=== PATIENT | female | born 1945 | race Caucasian/White ===

== ENCOUNTER → 2016-04-28 | Outpatient (CLI) | payer BC ==
[~2016-04-28] MED LIST: ATOR-14 PO; ATOR10TA88 PO; CALCTAB7 PO; COEN100C15 PO; OMEG10007 PO; OPTIRAY 320 IV PRN; OXYC-57 PO; PREMARIN; RIZA10TA18 PO; VTMD400 PO
--- NOTE | 2016-04-28 11:42 | DIAGNOSTIC IMAGING REPORT ---
CT SCAN OF THE ABDOMEN AND PELVIS WITH IV CONTRAST CLINICAL HISTORY: Followup pancreatic lesion/cyst. COMPARISON STUDY: Abdominal CT dated 09/22/2015. TECHNIQUE: Following the IV administration of 92 cc of Optiray 320, CT scan of the abdomen and pelvis is performed from the lung bases to the proximal femora. Images are reviewed in the axial, sagittal, and coronal planes. IV contrast was administered without complication. Automated dose control exposure was utilized. CT DOSE: 315.91 mGycm FINDINGS: Lung bases: The heart is normal in size and without pericardial effusion. A 3 mm left lower lobe pulmonary nodule is seen on image #16. A 2 mm nodule the right lung base as seen on image #26. These are unchanged from previous. No new pulmonary nodule is suspected. The lung bases are otherwise clear noting dependent atelectasis. Liver: The contrast-enhanced liver is normal in size, contour, and attenuation. There is no intrahepatic biliary ductal dilatation. The hepatic veins and portal veins are patent. An 8 mm indeterminate hypodensity in the right lobe on image #87 is unchanged from 09/22/2015. This may present a cyst but is too small for definitive characterization. Gallbladder: Unremarkable. Spleen: Normal in size and attenuation. Pancreas: There is mild glandular atrophy. The pancreatic duct is normal in caliber. No pancreatic lesion is seen. The questioned tiny IPMN suggested on 09/22/2015 is not well visualized. Adrenal glands: Unremarkable. Kidneys: The contrast enhanced kidneys are normal in size and without hydronephrosis. The kidneys enhance symmetrically. A subcentimeter cortical hypodensity upper pole of left kidney may represent a tiny cyst but is too small for definitive characterization. Abdominal vasculature: The abdominal aorta is normal in course and caliber noting mild atherosclerotic calcification. Bowel: The small bowel and colon are normal in course and caliber. There is moderate colonic fecal retention. The appendix is not visualized. Peritoneum: There is no intraperitoneal free air or abdominal ascites. Lymphadenopathy: None. Pelvic viscera: The bladder, uterus, and adnexa are normal as visualized. Calcified phleboliths are seen in the pelvis. Skeletal structures: The skeletal structures are osteopenic. There is moderate lumbosacral spondylosis. Bilateral pars defects are seen at L5 with minimal anterolisthesis at L5-S1. No lytic or blastic lesions are seen. A hemangioma is noted in the body of L1. IMPRESSION: 1. No pancreatic lesion is identified on today's examination. The 3 mm suspected IPMN suggested on 09/22/2015 is no longer discretely visualized and may have represented fat. No lesion is identified typical in appearance for pancreatic adenocarcinoma. 2. An 8 mm subcentimeter hypodensity in the right lobe of liver is unchanged. This may represent a cyst but is too small for definitive characterization. 3. No acute infectious or inflammatory findings are identified. 4. Moderate colonic fecal retention. Electronically signed by: Juan R Ford M.D. 04/28/2016 11:40 AM Dictated Date/Time: 04/28/2016 11:27 AM
== END | disposition home or self-care (01) ==
LOC: C.CTS 10:31
PROVIDERS: ATTEND Internal Medicine Hematology & Oncology
DX: K86.2 Cyst of pancreas (principal); R93.2 Abnormal findings on diagnostic imaging of liver and biliary tract; K59.00 Constipation, unspecified

== ENCOUNTER → 2016-07-21 | Outpatient (CLI) | payer BC ==
[~2016-07-21] MED LIST changes: +ATOR10TA82 PO; -ATOR10TA88 PO; -OPTIRAY 320 IV PRN
== END | disposition home or self-care (01) ==
LOC: C.MAMM 07:48
PROVIDERS: ATTEND Family Medicine
DX: M85.851 Other specified disorders of bone density and structure, right thigh (principal); M85.852 Other specified disorders of bone density and structure, left thigh

== ENCOUNTER → 2016-08-10 | Outpatient (CLI) | payer BC ==
--- NOTE | 2016-08-10 13:17 | MAMMOGRAPHY REPORT ---
BILATERAL DIGITAL SCREENING MAMMOGRAM WITH CAD: 08/10/2016 CLINICAL HISTORY: Routine screening. Patient has no complaints. TECHNIQUE: Current study was also evaluated with a Computer Aided Detection (CAD) system. Bilatera l CC and MLO views were obtained. COMPARISON: Comparison is made to exams dated: 08/10/2015 mammogram, 08/06/2014 mammogram, 08/05/2013 joceline mogram, 08/02/2012 mammogram, 08/01/2011 mammogram, and 07/28/2010 mammogram - [facility]. BREAST COMPOSITION: The tissue of both breasts is extremely dense, which lowers the sensitivity of mammography. FINDINGS: No suspicious masses, calcifications, or areas of architectural distortion are noted in e ither breast. There has been no significant interval change compared to prior exams. IMPRESSION: ACR BI-RADS CATEGORY 1: NEGATIVE There is no mammographic evidence of malignancy. A 1 year screening mammogram is recommended. The p atient will receive written notification of the results. Approximately 10% of breast cancers are not detected with mammography. A negative mammographic repor t should not delay biopsy if a clinically suggestive mass is present. Chyna Vázquez M.D. /:08/10/2016 11:48:23 Base Brander: Yolie DOYLE(R)(M), [facility] letter sent: Normal 1/2 BI-RADS Code: ACR BI-RADS Category 1: Negative
== END | disposition home or self-care (01) ==
LOC: C.MAMM 09:53
PROVIDERS: ATTEND Obstetrics & Gynecology
DX: Z12.31 Encounter for screening mammogram for malignant neoplasm of breast (principal)

== ENCOUNTER 2016-10-11 18:51 | Emergency (ER) | payer BC ==
[~2016-10-11] VITALS: Ht 162.6 cm; Wt 50.2 kg
[~2016-10-11 18:51] MED LIST changes: -ATOR10TA82 PO; -OXYC-57 PO; -PREMARIN; -RIZA10TA18 PO; -VTMD400 PO
[2016-10-11 18:56] VITALS: Ht 162.6 cm; Wt 50.2 kg
[2016-10-11] MEDS ORDERED: ATOR10TA88 PO (19:43)
[2016-10-11] MEDS ORDERED: VTMD400 PO (19:43)
--- NOTE | 2016-10-11 20:25 | DIAGNOSTIC IMAGING REPORT ---
CHEST ONE VIEW PORTABLE CLINICAL HISTORY: Chest and upper back pain. COMPARISON STUDY: Chest radiograph October 07, 2015. FINDINGS: Lung volumes are normal. There is no pneumothorax or pleural effusion. Cardiac size is normal. Mediastinal contours are unremarkable. There is no evidence of pulmonary edema. No consolidation is identified. Slight asymmetric hazy right lung opacity is likely artifactual. IMPRESSION: No acute cardiopulmonary findings. Electronically signed by: Mikhail Perkins M.D. 10/11/2016 8:23 PM Dictated Date/Time: 10/11/2016 8:17 PM
[2016-10-11 20:47] LABS: BASO % 0.2 %; BASO ABS # 0.02 K/uL (0-0.2); COMPLETE YES; EOS % 0.2 %; HEMATOCRIT 42.4 % (37-47); IG% 0.2 %; LYMPH % 10.9 %; LYMPH ABS # 0.98 K/uL (1.2-3.4); MEAN CELL VOLUME 89.5 fL (80-100); MEAN CORPUSCULAR HEMOGLOBIN 30.6 pg (25-34); MEAN CORPUSCULAR HGB CONC 34.2 g/dl (32-36); MEAN PLATELET VOLUME 9.6 fL (7.4-10.4); MONO % 8.1 %; NEUT % 80.4 %; PLATELET COUNT 219 K/uL (130-400); RED BLOOD COUNT 4.74 M/uL (4.2-5.4); WHITE BLOOD COUNT 9.02 K/uL (4.8-10.8)
[2016-10-11 20:51] VITALS: O2SAT 97
[2016-10-11 20:57] LABS: POINT OF CARE TROPONIN I < 0.030 ng/ml (0-0.045)
[2016-10-11 21:10] LABS: BUN/CREATININE RATIO 13.8 (10-20); CALCIUM 10.4 mg/dl (8.5-10.1)
[2016-10-11 21:15] LABS: CKMB/CK RATIO 0.6 (0-3.0)
[2016-10-11 21:47] LABS: URINE APPEARANCE CLEAR (CLEAR); URINE BILIRUBIN NEG (NEG); URINE COLOR YELLOW; URINE EPITHELIAL CELL AUTO >30 /lpf (0-5); URINE NITRITE NEG (NEG); UROBILINOGEN NEG (NEG); ZZUR CULT IF INDIC CLEAN CATCH YES
[2016-10-11 21:50] LABS: MANUAL MICROSCOPIC REQUIRED? NO; REVIEW REQ? YES
[2016-10-11 22:06] LABS: URINE MUCUS PRESENT (NONE PRSENT)
--- NOTE | 2016-10-11 23:37 | EMERGENCY ROOM VISIT NOTE ---
History Report prepared by Anny: Brittaney Esqueda Under the Supervision of: Dr. Vincent Mckenna M.D. First contact with patient: 19:50 Chief Complaint: BACK PAIN Stated Complaint: PAINS IN UPPER BACK AND R SIDE OF CHEST History of Present Illness The patient is a 71 year old female who presents to the Emergency Room with complaints of persistent right sided back pain that began late this morning. She currently rates her discomfort as a 7/10 in severity. The patient states that she additionally notices pain in the right side of her chest. She states that she notices increased, sharp pains with a deep breath occasionally. The patient denies ever having pain like this in the past. She denies the pain worsening with exertion and right arm movements. The patient denies any recent fall or trauma. She reports abdominal tenderness last evening, but denies having the pain now. Pt denies LOC, headache, fevers, chills, diaphoresis, visual changes, neck pain, breathing difficulties, nausea, vomiting, melena, hematochezia, urinary symptoms, numbness, weakness, lymphadenopathy, rash, or other complaints. Source of History: patient Onset: late this morning Position: back (right sided) Symptom Intensity: 7/10 Quality: sharp Timing: other (persistent) Modifying Factors (Worsening): breathing (deep) Associated Symptoms: + chest pain (right sided), + abdominal pain Review of Systems See HPI for pertinent positives and negatives. A total of ten systems were reviewed and were otherwise negative. Past Medical & Surgical Medical Problems: (1) Epigastric pain (2) Pancreatitis (3) Tendonitis Surgical Problems: (1) H/O dilation and curettage Family History FH: HTN (hypertension) FH: cancer FH: diabetes mellitus FH: gallbladder disease FH: heart disease FH: kidney disease Social History Smoking Status: Never Smoker Marital Status: Housing Status: lives with significant other Occupation Status: employed Current/Historical Medications Scheduled Atorvastatin (Lipitor), 10 MG PO DAILY Calcium Carbonate-Vitamin D W/ (Caltrate 600 Plus), 1 TAB PO BID Cholecalciferol (Vitamin D3), 400 UNITS PO BID Coenzyme Q10 (Ubidecarenone) (Co Q10), 1 CAP PO DAILY Fish Oil ([place]-3), 1 CAP PO BIDM Allergies Coded Allergies: Nitrofurantoin (Verified Allergy, Mild, hives, 10/11/16) Propoxyphene (Verified Allergy, Mild, hives, 10/11/16) Physical Exam Vital Signs Date Time Temp Pulse Resp B/P (MAP) Pulse Ox O2 Delivery O2 Flow Rate FiO2 10/12/16 00:04 36.8 71 18 119/71 98 10/11/16 23:55 71 18 119/71 98 Room Air 10/11/16 21:01 73 18 124/63 97 Room Air 10/11/16 20:51 97 Room Air 10/11/16 20:27 74 10/11/16 18:56 36.8 95 18 141/78 98 Room Air Physical Exam GENERAL: Awake, alert, well-appearing, in no distress HENT: Normocephalic, atraumatic. Oropharynx unremarkable. EYES: Normal conjunctiva. Sclera non-icteric. NECK: Supple. No nuchal rigidity. FROM. No JVD. RESPIRATORY: Clear to auscultation. CARDIAC: Regular rate, normal rhythm. Extremities warm and well perfused. Pulses equal. ABDOMEN: Soft, non-distended. No tenderness to palpation. No rebound or guarding. No masses. RECTAL: Deferred. MUSCULOSKELETAL: Chest examination reveals no tenderness. The back is symmetrical on inspection without obvious abnormality. There is no CVA tenderness to palpation. No joint edema. LOWER EXTREMITIES: Calves are equal size bilaterally and non-tender. No edema. No discoloration. NEURO: Normal sensorium. No sensory or motor deficits noted. SKIN: No rash or jaundice noted. Medical Decision & Procedures ER Provider Diagnostic Interpretation: Radiology results as stated below per my review and radiologist interpretation: CHEST ONE VIEW PORTABLE CLINICAL HISTORY: Chest and upper back pain. COMPARISON STUDY: Chest radiograph October 07, 2015. FINDINGS: Lung volumes are normal. There is no pneumothorax or pleural effusion. Cardiac size is normal. Mediastinal contours are unremarkable. There is no evidence of pulmonary edema. No consolidation is identified. Slight asymmetric hazy right lung opacity is likely artifactual. IMPRESSION: No acute cardiopulmonary findings. Electronically signed by: Mikhail Perkins M.D. 10/11/2016 8:23 PM Dictated Date/Time: 10/11/2016 8:17 PM Gallbladder: Cholelithiasis without inflammatory or obstructive changes. Radiologist: Rachana Verdin MD Study ready at [id number] and initial results transmitted at 2322 Laboratory Results 10/11/16 20:25 Red Blood Count 4.74, Mean Corpuscular Volume 89.5, Mean Corpuscular Hemoglobin 30.6, Mean Corpuscular Hemoglobin Concent 34.2, Mean Platelet Volume 9.6, Neutrophils (%) (Auto) 80.4, Lymphocytes (%) (Auto) 10.9, Monocytes (%) (Auto) 8.1, Eosinophils (%) (Auto) 0.2, Basophils (%) (Auto) 0.2, Neutrophils # (Auto) 7.25, Lymphocytes # (Auto) 0.98, Monocytes # (Auto) 0.73, Eosinophils # (Auto) 0.02, Basophils # (Auto) 0.02 10/11/16 20:25 Test 10/11/16 20:25 10/11/16 20:37 10/11/16 22:36 White Blood Count 9.02 K/uL (4.8-10.8) Red Blood Count 4.74 M/uL (4.2-5.4) Hemoglobin 14.5 g/dL (12.0-16.0) Hematocrit 42.4 % (37-47) Mean Corpuscular Volume 89.5 fL (80-100) Mean Corpuscular Hemoglobin 30.6 pg (25-34) Mean Corpuscular Hemoglobin Concent 34.2 g/dl (32-36) Platelet Count 219 K/uL (130-400) Mean Platelet Volume 9.6 fL (7.4-10.4) Neutrophils (%) (Auto) 80.4 % Lymphocytes (%) (Auto) 10.9 % Monocytes (%) (Auto) 8.1 % Eosinophils (%) (Auto) 0.2 % Basophils (%) (Auto) 0.2 % Neutrophils # (Auto) 7.25 K/uL (1.4-6.5) Lymphocytes # (Auto) 0.98 K/uL (1.2-3.4) Monocytes # (Auto) 0.73 K/uL (0.11-0.59) Eosinophils # (Auto) 0.02 K/uL (0-0.5) Basophils # (Auto) 0.02 K/uL (0-0.2) RDW Standard Deviation 42.2 fL (36.4-46.3) RDW Coefficient of Variation 12.9 % (11.5-14.5) Immature Granulocyte % (Auto) 0.2 % Immature Granulocyte # (Auto) 0.02 K/uL (0.00-0.02) Urine Color YELLOW Urine Appearance CLEAR (CLEAR) Urine pH 7.0 (4.5-7.5) Urine Specific [place] 1.020 (1.000-1.030) Urine Protein NEG (NEG) Urine Glucose (UA) 2+ (NEG) Urine Ketones NEG (NEG) Urine Occult Blood 1+ (NEG) Urine Nitrite NEG (NEG) Urine Bilirubin NEG (NEG) Urine Urobilinogen NEG (NEG) Urine Leukocyte Esterase NEG (NEG) Urine WBC (Auto) 1-5 /hpf (0-5) Urine RBC (Auto) 5-10 /hpf (0-4) Urine Hyaline Casts (Auto) 0 /lpf (0-5) Urine Epithelial Cells (Auto) >30 /lpf (0-5) Urine Bacteria (Auto) NEG (NEG) Urine Mucus PRESENT (NONE PRSENT) Urine Yeast (Auto) (NONE PRSENT) Anion Gap 6.0 mmol/L (3-11) Est Creatinine Clear Calc Drug Dose 42.1 ml/min Estimated GFR () 66.6 Estimated GFR (Non- 57.4 BUN/Creatinine Ratio 13.8 (10-20) Calcium Level 10.4 mg/dl (8.5-10.1) Total Bilirubin 0.5 mg/dl (0.2-1) Direct Bilirubin 0.1 mg/dl (0-0.2) Aspartate Amino Transf (AST/SGOT) 15 U/L (15-37) Alanine Aminotransferase (ALT/SGPT) 21 U/L (12-78) Alkaline Phosphatase 45 U/L (45-117) Total Creatine Kinase 86 U/L (26-192) Creatine Kinase MB 0.5 ng/ml (0.5-3.6) Creatine Kinase MB Ratio 0.6 (0-3.0) Total Protein 7.7 gm/dl (6.4-8.2) Albumin 4.1 gm/dl (3.4-5.0) Lipase 272 U/L (73-393) Bedside D-Dimer 94 ng/mlFEU (0-450) Bedside Troponin I < 0.030 ng/ml (0-0.045) Laboratory results reviewed by ECG Indication: SOB/dyspnea Rate (beats per minute): 84 Rhythm: normal sinus Findings: no acute ischemic change, no ectopy, other (poor R wave progression) ED Course 2003: The patient was evaluated in room A10. A complete history and physical exam was performed. 7: I reevaluated the patient and she is resting comfortably. She is going to have an ultrasound. 2330: I reevaluated the patient and she is resting comfortably. I discussed the exam findings with her and I discussed the treatment plan. She verbalized complete understanding and agreement. She is ready to go home. Medical Decision Medication Reconciliation: I attest that I have personally reviewed the patient' s current medication list Patient was found to have a slightly elevated blood pressure due to circumstances. I do not believe that the patient requires hypertension monitoring. Triage Nursing notes reviewed. The patient's presentation and history were concerning for right-sided chest and back pain. Etiologies such as musculoskeletal, infections, gastrointestinal, cardiac ischemia, aortic dissection, pulmonary embolism, pneumonia, pneumothorax, as well as others were entertained. Patient was evaluated. Clinically she looks well. She declined analgesia. Her ECG was unremarkable. The patient had an unremarkable chest x-ray. Her CBC , chemistry panel, LFTs, lipase, troponin, d-dimer, and urinalysis were unremarkable. The patient had some trace blood but denies any urinary symptoms. She has no flank pain radiating anteriorly to suggest renal colic. Clinically she looks comfortable. She notes having blood in her urine previously. I did discuss the need to have this monitored. She states that she has been evaluated for it in the past. The patient does note a family history of gallbladder disease. She did not have significant amount of tenderness in the right upper quadrant but notes occasional upper abdominal pain. The patient underwent ultrasound imaging. This did reveal cholelithiasis. There is no signs of cholecystitis. On reassessment the patient was feeling well. I discussed conservative management. I did discuss diet modification. The patient will also use Tylenol on ibuprofen as needed. If she has worsening pain, fever, or vomiting she will come back to the emergency department. She will need close follow-up with her primary physician. The patient and felt comfortable with this plan. I gave my usual and customary discussion regarding this issue. The patient also noted prior to discharge that she was doing a lot of throwing with her right arm and questioned if this could be musculoskeletal. It is possible although she did not have reproducible tenderness. By the evaluation outlined above other emergent etiologies such as those listed in the differential, as well as others, were deemed relatively unlikely. The patient was educated about the findings as listed above. All questions were answered and the patient was pleased with the treatment. Return instructions were outlined and the patient was discharged in stable condition. The patient was referred to her PCP for follow-up for a recheck of the current condition. Impression Primary Impression: Right-sided chest pain Additional Impressions: Right low back pain Cholelithiasis Scribe Attestation The scribe's documentation has been prepared under my direction and personally reviewed by me in its entirety. I confirm that the note above accurately reflects all work, treatment, procedures, and medical decision making performed by me. Departure Information Dispostion Home / Self-Care Referrals Usman Davalos M.D. (PCP) Patient Instructions My [facility] Additional Instructions Ibuprofen(Motrin, Advil) may be used for fever or pain. Use 600mg every six hours as needed. Take with food. Avoid using more than 2400mg in a 24 hour period. Do not use 2400mg per day for more than three consecutive days without physician direction. Prolonged inappropriate use can lead to stomach upset or ulcers. (AND/OR) Acetaminophen(Tylenol) may be used for fever or pain. Use 1000mg every six hours as needed. Avoid using more than 4000mg in a 24 hour period. Rest and drink plenty of fluids as tolerated. Slow sips of water or sports drinks are recommended instead of large amounts all at once. Continue current medications. Avoid fatty foods as discussed. Return to the ER immediately for worsening or persistent chest pain, abdominal pain, vomiting, fevers, difficulty breathing, black or bloody stools, worsening of your condition, or as needed. Follow up with your primary physician in 2-3 days for a recheck of your current condition. Problem Qualifiers
[2016-10-12 00:04] VITALS: BP 119/71; PULSE 71; TEMP 36.8; O2SAT 98
--- NOTE | 2016-10-12 06:55 | DIAGNOSTIC IMAGING REPORT ---
GALLBLADDER-ABD LIMITED HISTORY:71 yearsFemaleRight upper and back pain COMPARISON: Hepatobiliary scan 09/22/2015, CT abdomen and pelvis 09/22/2015. TECHNIQUE: Multiple real-time sonographic images of the abdominal right upper quadrant were obtained assessing grayscale appearance and color flow. FINDINGS: Image pancreas is within normal limits without pancreatic ductal dilatation. The liver appears unremarkable measuring up to 13.7 cm. The gallbladder is slightly contracted without gallbladder wall thickening or pericholecystic fluid. Sonographic Benitez's sign reported as negative. Common bile duct is normal, 0.2 cm. There is a round echogenic non-shadowing structure near the gallbladder neck, 0.5 cm which is seen dependently without reported mobility per topographical drafter. The imaged right kidney appears unremarkable. IMPRESSION: 1. 0.5 cm echogenic non-shadowing structure along the dependent aspect of the gallbladder neck is noted without sonographic evidence of acute cholecystitis. Differential considerations would include tumefactive sludge, cholelithiasis or gallbladder polyp. 2. The remainder of the study is within normal limits. 3. No biliary ductal dilatation. The above report was generated using voice recognition software. It may contain grammatical, syntax or spelling errors. Electronically signed by: Liu Nguyen M.D. 10/12/2016 6:54 AM Dictated Date/Time: 10/12/2016 6:49 AM
[2016-11-07] MEDS ORDERED: RIZA10TA18 PO (14:12)
== END 2016-10-12 00:06 | disposition home or self-care (01) ==
LOC: C.EDB 18:52 → C.EDA 10-12 00:06
DX: R07.89 Other chest pain (principal); M54.5 Low back pain; K80.20 Calculus of gallbladder without cholecystitis without obstruction; K86.1 Other chronic pancreatitis; Z79.899 Other long term (current) drug therapy; Z88.8 Allergy status to other drugs, medicaments and biological substances; Z82.49 Family history of ischemic heart disease and other diseases of the circulatory system; Z80.9 Family history of malignant neoplasm, unspecified; Z83.3 Family history of diabetes mellitus; Z83.79 Family history of other diseases of the digestive system; Z84.1 Family history of disorders of kidney and ureter

== ENCOUNTER 2016-11-08 05:12 | Day surgery (SDC) | payer BC ==
[2016-11-07 14:12] VITALS: BMI 18.0
[2016-11-08] VITALS (7 sets, daily range): BP systolic 106–145; BP diastolic 61–73; PULSE 52–75; TEMP 36.3–36.9; O2SAT 96–99; Ht 163.8 cm; Wt 49.5 kg
[~2016-11-08] VITALS: Ht 163.8 cm; Wt 49.5 kg
[~2016-11-08 05:12] MED LIST changes: -ATOR-14 PO; +ATOR10TA88 PO; +RIZA10TA18 PO; +VTMD400 PO
[2016-11-08] MEDS ORDERED: PREMARIN (05:44)
[2016-11-08] MEDS ORDERED: LACTATED RINGER'S 1000ML 1,000 ML IV SCH ×2 (06:00→08:11)
--- NOTE | 2016-11-08 06:24 | History & Physical Bridge Note ---
H&P Re-Evaluation Bridge Note: I have examined the patient, reviewed the History & Physical and in the interval since the performance of the History & Physical I have noted the following changes of clinical significance: No changes noted inocente bedside, all questions answered
[2016-11-08] MEDS ORDERED: CONRAY 60% 50 ML VIAL ONE (06:42)
[2016-11-08] MEDS ORDERED: LIDOCAINE/EPINEPHRINE 1% 20 ML VIAL ONE (06:42)
[2016-11-08] MEDS ORDERED: ROCURONIUM BROMIDE 10 MG/ML 5 ML VIAL ONE (06:46)
[2016-11-08] MEDS ORDERED: LIDOCAINE HCL 2% 2 ML VIAL (20MG/ML) ONE (06:46)
[2016-11-08] MEDS ORDERED: FENTANYL CITRATE INJ 50 MCG/1 ML 2 ML VIAL ONE (06:46)
[2016-11-08] MEDS ORDERED: PROPOFOL IV EMULSION 10 MG/ML 20 ML VIAL IV ONE (06:46)
[2016-11-08] MEDS ORDERED: MIDAZOLAM HCL 1 MG/ML 2ML VIAL ONE (06:46)
[2016-11-08] MEDS ORDERED: ONDANSETRON INJ 2 MG/ML 2 ML VIAL ONE (07:40)
[2016-11-08] MEDS ORDERED: DEXAMETHASONE SOD INJ 4 MG/ML VIAL ONE (07:40)
[2016-11-08] MEDS ORDERED: PHENYLEPHRINE 100MCG/ML 5ML SYR ONE (07:40)
[2016-11-08] MEDS ORDERED: ONDANSETRON INJ 2 MG/ML 2 ML VIAL IV PRN ×2 (08:00→08:15)
[2016-11-08] MEDS ORDERED: EpHEDrine SULFATE INJ 50 MG/ML AMP IV PRN (08:00)
[2016-11-08] MEDS ORDERED: ATROPINE SULFATE 0.1 MG/ML 5ML SYR IV PRN (08:00)
[2016-11-08] MEDS ORDERED: PROMETHAZINE HCL INJ 6.25 MG in SODIUM CHLORIDE 0.9% 50ML 50 ML IV PRN (08:00)
--- NOTE | 2016-11-08 08:05 | DIAGNOSTIC IMAGING REPORT ---
INTRAOPERATIVE CHOLANGIOGRAM HISTORY: Post cholecystectomy. FLUOROSCOPY TIME: 6 seconds. 5 fluoroscopic spot images FINDINGS: Fluoroscopy was provided for an intraoperative cholangiogram status post cholecystectomy. Contrast was injected through the cystic duct remnant. The common bile duct is normal in course and caliber. There are no filling defects seen within the common bile duct to suggest a retained stone. Contrast extends into the small bowel. There is no intrahepatic bile duct dilatation. IMPRESSION: Fluoroscopy provided for an intraoperative cholangiogram status post cholecystectomy. No filling defects within the common bile duct. Electronically signed by: Real Richards M.D. 11/08/2016 8:03 AM Dictated Date/Time: 11/08/2016 8:02 AM
--- NOTE | 2016-11-08 08:08 | [facility] Operative Report ---
Operative Report Operative Date Nov 08, 2016. Pre-Operative Diagnosis Symptomatic Cholelithiasis Post-Operative Diagnosis Same Procedure(s) Performed Laparoscopic Cholecystectomy with Cholangiogram Surgeon Dr Friedman Book Reviewer Surgeon(s) Justin Martinez PA-C Estimated Blood Loss 5ML Findings ccc Specimens A. Gallbladder Indications pain , bloating Description of Procedure richar [email or web address]'gram Op summary dictated confirmation number [id number] I attest to the content of the Intraoperative Record and any orders documented therein. Any exceptions are noted below.
[2016-11-08] MEDS ORDERED: OXYC-57 PO (08:13)
--- NOTE | 2016-11-08 08:14 | Discharge Instructions ---
Discharge Instructions Date of Service Nov 08, 2016. Visit Reason for Visit: Symptomatic Cholelithiasis Discharge Discharge Diagnosis / Problem: laparoscopic cholecystectomy Discharge Goals Goal(s): Decrease discomfort Activity Recommendations Activity Limitations: as noted below Lifting Limitations: no more than 10 pounds Shower/Bathe: tomorrow Driving or Machine Use: resume 3 days after discharge Anesthesia . Post Anesthesia Instructions: If you have had General Anesthesia or IV Sedation: * Do not drive today. * Resume driving when surgeon permits. * Do not make important decisions or sign legal documents today. * Call surgeon for: 1. Temperature elevations greater than 101 degrees F. 2. Uncontrollable pain. 3. Excessive bleeding. 4. Persistent nausea and vomiting. 5. Medication intolerance (nausea, vomiting or rash). * For nausea and vomiting use only clear liquids such as: tea, soda, bouillon until nausea subsides, then gradually increase diet as tolerated. * If you have any concerns or questions, call your surgeon's office. If physician is unavailable and it is an emergency, call 911 or go to the nearest emergency room. . Instructions / Follow-Up Instructions / Follow-Up Dr. swan in 1 week, call [phone] for any questions or if you need to schedule follow-up Diet Recommendations Recommended Home Diet: no limitations Procedures Procedures Performed: Laparoscopic Cholecystectomy with Cholangiogram Pending Studies Studies pending at discharge: no Medical Emergencies . Who to Call and When: Medical Emergencies: If at any time you feel your situation is an emergency, please call 911 immediately. . Non-Emergent Contact Non-Emergency issues call your: Surgeon Call Non-Emergent contact if: you have a fever, temperature is above 101.5, your pain is not controlled, wound has increased redness, you have any medication questions . . "Provider Documentation" section prepared by Justin Martinez. . [place] Drug Monitoring Program Search Results: no issues identified
[2016-11-08] MEDS ORDERED: OXYCODONE/ACETAMINOPHEN 5-325 TAB PO PRN (08:15)
[2016-11-08] MEDS ORDERED: MoRPHine SULFATE 4 MG/ML 1 ML CARP\\VIAL IV PRN (08:15)
[2016-11-08] MEDS ORDERED: GLYCOPYRROLATE INJ 0.2 MG/ML VIAL ONE (08:22)
[2016-11-08] MEDS ORDERED: NEOSTIGMINE METHYLSULFATE 5 MG/5 ML SYR ONE (08:22)
[2016-11-08] MEDS: FENTANYL CITRATE INJ 50 MCG/1 ML 2 ML VIAL IV PRN ×2 (08:26→08:31)
--- NOTE | 2016-11-08 08:37 | OPERATIVE REPORT ---
DATE OF OPERATION: 11/08/2016 PREOPERATIVE DIAGNOSIS: Chronic cholecystitis. POSTOPERATIVE DIAGNOSIS: Same. PROCEDURE: Laparoscopic cholecystectomy, intraoperative cholangiogram. SURGEON: Dr. Friedman. AIRPLANE PILOT CROP DUSTING: Dilip Martinez PA-C. OPERATION AND FINDINGS: SUMMARY: The patient was brought into the operating room theater. The abdomen was prepped with Betadine solution and properly draped. We made a small transverse incision supraumbilically sufficient enough to place a Veress needle followed by CO2 followed by a 5 mm trocar. Point of entry inspected and no injury identified. Under direct visualization, we placed a 5 mm epigastric, two 5 mm subcostal ports with preemptive local analgesia 1% Xylocaine with epinephrine. At this point, we elevated the gallbladder, stomach was slightly distended and an NG tube had not been placed and it was hard to completely decompress it but we were able to elevate the gallbladder and identified towards the neck of the gallbladder where some adhesions there appreciated. These were taken down by blunt dissection. We identified, and created a window between the cystic duct and cystic artery identifying the lymph node of [place]. We clipped the cystic duct proximally. A small opening in the cystic duct was made. A #4 ureteral catheter transversed the abdominal wall and a 14 Angiocath was positioned in the cystic duct. Serial x-rays were taken. Initially there was some extravasation we were able to feel the duct sufficient enough that there were no filling defects and there was free flow into the duodenum. At this point the cholangiocath was removed. The cystic duct was doubly clipped and divided. Arteries were identified, clipped proximally, 1 distally and divided. Gallbladder was removed in antegrade fashion using electrocautery. Prior to freeing the gallbladder liver bed, the subhepatic area checked for hemostasis and appeared satisfactory. Gallbladder placed in an Endopouch and taken out through the epigastric port. At this point the subhepatic and suprahepatic area was then checked for hemostasis again. No bleeding was appreciated. The camera was placed in the right subcostal port to visualize the umbilical opening. There were no adhesions of the anterior abdominal wall in that area. Individual trocars were taken out under direct visualization. No bleeding identified last umbilical trocar. Wounds were closed with 4-0 Monocryl. Steri-Strips applied. The procedure was tolerated well by the patient. Estimated blood loss 5 mL. The patient was taken to recovery room in good condition. I attest to the content of the Intraoperative Record and any orders documented therein. Any exceptions are noted below. HARRISON
--- NOTE | 2016-11-08 09:13 | Anesthesiology Progress Note ---
Anesthesia Post Op Note Date & Time Nov 08, 2016 at 09:13 Vital Signs Pain Intensity: 4 Vital Signs Past 12 Hours Date Time Temp Pulse Resp B/P (MAP) Pulse Ox O2 Delivery O2 Flow Rate FiO2 11/08/16 08:40 62 14 104/57 96 Room Air Oxymask 11/08/16 08:30 55 18 118/66 100 Oxymask 3 11/08/16 08:20 67 18 110/62 100 Oxymask 5 11/08/16 08:13 36.3 72 18 110/58 100 Oxymask 10 11/08/16 05:46 36.9 75 18 145/71 (95) 99 Room Air Notes Mental Status: alert / awake / arousable, participated in evaluation Pt Amnestic to Procedure: Yes Nausea / Vomiting: adequately controlled Pain: adequately controlled Airway Patency, RR, SpO2: stable & adequate BP & HR: stable & adequate Hydration State: stable & adequate Anesthetic Complications: no major complications apparent
== END 2016-11-08 12:20 | disposition home or self-care (01) ==
LOC: C.OR 05:12
PROVIDERS: ATTEND Surgery
DX: K81.1 Chronic cholecystitis (principal); M81.0 Age-related osteoporosis without current pathological fracture; Z82.49 Family history of ischemic heart disease and other diseases of the circulatory system; Z80.41 Family history of malignant neoplasm of ovary

== ENCOUNTER → 2017-08-11 | Outpatient (CLI) | payer BC ==
[~2017-08-11] MED LIST changes: +ATOR10TA82 PO; -ATOR10TA88 PO; +PREMARIN
--- NOTE | 2017-08-14 07:43 | MAMMOGRAPHY REPORT ---
BILATERAL DIGITAL SCREENING MAMMOGRAM TOMOSYNTHESIS WITH CAD: 08/11/2017 CLINICAL HISTORY: Routine screening. Patient has no complaints. TECHNIQUE: Breast tomosynthesis in addition to standard 2D mammography was performed. Current study was also evaluated with a Computer Aided Detection (CAD) system. COMPARISON: Comparison is made to exams dated: 08/10/2016 mammogram, 08/10/2015 mammogram, 08/06/2014 joceline mogram, 08/05/2013 mammogram, 08/02/2012 mammogram, and 08/01/2011 mammogram - [facility] BREAST COMPOSITION: The tissue of both breasts is extremely dense, which lowers the sensitivity of m ammography. FINDINGS: There are possible grouped calcifications within the left upper outer quadrant posteriorly, for which spot modification views are recommended for further evaluation. The remainder of both breasts are stable compared to prior exams, without suspicious masses, calcific ations, or areas of architectural distortion noted. Calcifications within the right upper outer quad rant anteriorly are stable compared to multiple prior exams dating back to at least 2008 and consider ed benign given long-term stability. IMPRESSION: ACR BI-RADS CATEGORY 0: INCOMPLETE EVALUATION: NEED ADDITIONAL IMAGING EVALUATION Left upper outer quadrant calcifications, for which additional imaging evaluation is recommended. Th e patient will be called to schedule an appointment. Approximately 10% of breast cancers are not detected with mammography. A negative mammographic report should not delay biopsy if a clinically suggestive mass is present. Chyna Vázquez M.D. ah/:08/11/2017 17:42:57 Sole Edge Inker Machine: Gloria DOYLE(Sreekanth)(Brendan), [facility] letter sent: Addl Imaging 0 BI-RADS Code: ACR BI-RADS Category 0: Incomplete Evaluation: Need Additional Imaging Evaluation
== END | disposition home or self-care (01) ==
LOC: C.MAMM 09:59
PROVIDERS: ATTEND Obstetrics & Gynecology
DX: Z12.31 Encounter for screening mammogram for malignant neoplasm of breast (principal); R92.1 Mammographic calcification found on diagnostic imaging of breast

== ENCOUNTER 2020-12-02 13:18 | Observation (INO) ==
[2020-12-02 13:51] LABS: Basophils # (auto) 0.02 K/uL (0-0.2); Basophils % (auto) 0.3 %; Eosinophils # (auto) 0.06 K/uL (0-0.5); Hematocrit (blood only) 44.5 % (37-47); Immature Granulocytes # (auto) 0.01 K/uL (0.00-0.02); Immature Granulocytes % (auto) 0.2 %; Lymphocytes # (auto) 1.39 K/uL (1.2-3.4); Lymphocytes % (auto) 22.2 %; Mean Corpuscular Hemoglobin 30.9 pg (25-34); Mean Corpuscular Hgb Conc 33.7 g/dL (32-36); Mean Corpuscular Volume 91.6 fL (80-100); Mean Platelet Volume 9.5 fL (7.4-10.4); Monocytes # (auto) 0.39 K/uL (0.11-0.59); Monocytes % (auto) 6.2 %; Neutrophils # (auto) 4.39 K/uL (1.4-6.5); Neutrophils % (auto) 70.1 %; Platelet Count 252 K/uL (130-400); RDW Coefficient of Variation 12.9 % (11.5-14.5); RDW Standard Deviation 43.3 fL (36.4-46.3); Red Blood Count 4.86 M/uL (4.2-5.4); White Blood Count 6.26 K/uL (4.8-10.8)
[2020-12-02 14:02] LABS: Partial Thromboplastin Time 25.5 Seconds (21.0-31.0); Prothrombin Time 10.2 Seconds (9.0-12.0)
[2020-12-02 14:06] LABS: BUN Creatinine Ratio 17.2 (10-20); Blood Urea Nitrogen 18 mg/dl (7-18); Calcium 8.7 mg/dl (8.5-10.1); Carbon Dioxide 28 mmol/L (21-32); Chloride 103 mmol/L (98-107); Creatinine Clr Calc Pharmacy 36.8 ml/min; Est GFR (African American) 62.5 ml/min; Est GFR (Non-African American) 53.9 ml/min; Glucose 137 mg/dl (70-99); Potassium 3.5 mmol/L (3.5-5.1); Sodium 136 mmol/L (136-145)
[2020-12-02 14:13] LABS: Alanine Aminotransferase 26 U/L (12-78); Albumin Globulin Ratio 1.1 (0.9-2); Alkaline Phosphatase 53 U/L (45-117); Aspartate Aminotransferase 21 U/L (15-37); Bilirubin,Total 0.5 mg/dl (0.2-1); Globulin 3.8 gm/dl (2.5-4.0); Total Protein 7.8 gm/dl (6.4-8.2); Troponin I < 0.015 ng/ml (0-0.045)
--- NOTE | 2020-12-02 14:40 | XRay Report ---
XR chest 1V portable CLINICAL HISTORY: Chest pain. COMPARISON STUDY: Chest radiograph March 03, 2020. FINDINGS: Lung volumes are normal. Lungs are clear. There is no pneumothorax or pleural effusion. Car diac size is normal. Mediastinal contours are normal. There is no evidence for pulmonary edema. Nippl e shadows project over each lower lung. There are cholecystectomy clips. IMPRESSION: No acute cardiopulmonary findings. ACT 112: Negative or not required by law. Electronically signed by: Mikhail Perkins M.D. 12/02/2020 2:39 PM
[2020-12-02 15:08] LABS: D Dimer < 190 ug/L FEU (0-500)
--- NOTE | 2020-12-02 15:08 | Emergency Department Note ---
Impression & Plan Chest pain ED Provider Note INFORMANT: Patient ED PROVIDER(S): Vincent Mckenna MD CHIEF COMPLAINT: Chest pain PLAN: Disposition: Admitted Condition: Good Outpatient prescription management: none Referral: None MEDICAL DECISION MAKING: Patient presented with chest pain. Her ECG did show some change compared to prior. Her chest x-ray, troponin, CBC, chemistry panel, LFTs were negative. I did discuss the case with Dr. Houser of cardiology. Given the scenario he recommended the patient be admitted and have a full cardiac evaluation performed. Patient was given aspirin. I did discuss the case with . The patient was evaluated in the ER admitted for further management. Triage Nursing notes reviewed and agree them. Vital Signs: reviewed and remarkable for no significant abnormalities Differential diagnosis: Cardiac ischemia, aortic dissection, pulmonary embolism, pneumothorax, pneumonia, pericarditis, myocarditis, esophageal rupture, GERD, cholecystitis, pancreatitis, musculoskeletal, as well as other pathologies. Diagnostics interpreted by me: ECG: Twelve-lead ECG reveals normal sinus rhythm with anterior nonspecific ST and T wave abnormality present. When compared to prior ECG the ST T wave changes are new. Cardiac Monitoring: Cardiac monitoring ordered by me: The patient was placed on continuous cardiac monitoring and observed. It revealed a normal sinus rhythm at 65 beats per minute without ectopy or evidence of dysrhythmia. Imaging studies: Chest x-ray. Findings: A chest x-ray was performed and revealed no pneumothorax, effusion, infiltrate, pulmonary edema, free air under the diaphragm, or wide mediastinum. Impression: No acute disease. HPI: The patient is a 75 year old female who presents to the Emergency Room with complaints of chest pain. This started 3 days ago and is intermittent. The patient also notes the following associated symptoms, aching pain under the shoulder blades. Worsened with walking to the mailbox today. The patient has taken no medication for relieving factors. Current pain is rated as 0/10. Pt denies LOC, headache, fevers, chills, diaphoresis, visual changes, neck pain, breathing difficulties, nausea, vomiting, abdominal pain, melena, hematochezia, urinary symptoms, numbness, weakness, lymphadenopathy, rash, or other complaint s. ROS: See above HPI for pertinent positives & negatives. A total of 10 systems reviewed and were otherwise negative. PAST MEDICAL HISTORY:See Below , high cholesterol PAST SURGICAL HISTORY:See Below, FAMILY HISTORY:See Below, CAD SOCIAL HISTORY:See Below, no smoking HOME MEDICATIONS:See Below ALLERGIES:See Below VITALS:See Below PHYSICAL EXAMINATION: GENERAL: Awake, alert, well-appearing, in no distress HENT: Normocephalic, atraumatic. Oropharynx unremarkable. EYES: Normal conjunctiva. Sclera non-icteric. NECK: Inspection normal. Non-tender. Supple. No nuchal rigidity. FROM. No masses. RESPIRATORY: Clear to auscultation. No wheezes. No rales. Normal respiratory effort. CARDIAC: Normal rate. Normal rhythm. No murmurs. No rubs. Extremities warm and well perfused. Pulses equal. No JVD. GI: Soft, non-distended. No tenderness to palpation. No rebound or guarding. No masses. RECTAL: Deferred. MUSCULOSKELETAL: Atraumatic. Chest examination reveals no tenderness. The back is symmetrical on inspection without obvious abnormality. There is no CVA tenderness to palpation. No joint edema. LOWER EXTREMITIES: Calves are equal size bilaterally and non-tender. No edema. No discoloration. NEURO: Normal sensorium. No sensory or motor deficits noted. SKIN: No rash or jaundice noted. Vincent Mckenna MD Past Med/Surg History Medical History Atrophic vulvovaginitis Degenerative disc disease Endometriosis Hyperlipidemia Osteoarthritis Prediabetes Surgical History History of cholecystectomy History of colonoscopy History of dilatation and curettage History of tooth extraction Hx of left breast biopsy benign Hx of tubal ligation Family History Sister Family history of diabetes mellitus Aunt Family history of diabetes mellitus Uncle Family history of diabetes mellitus Other No family history of adverse response to anesthesia Denies family history of Breast cancer Colorectal cancer Social History Smoking Status: Never smoker Second Hand Exposure: Yes (father smoked); Hx Alcohol Use: No Hx Substance Use: No Preferred Language: Haitian Communication Ability: Effective 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: No Beliefs That Will Affect Care: None Current Living Situation: Spouse Other Information That Helps Us Care for You: No Feels Safe at Home: Yes Safety Concerns: Feels Safe At This Time Assistive Devices: Glasses Allergies Allergies Allergy/AdvReac Type Severity Reaction Status Date / Time nitrofurantoin Allergy Mild hives Verified 01/14/20 13:06 propoxyphene Allergy Mild hives Verified 03/03/20 19:00 Home Meds Home Medications Medication Instructions Recorded Confirmed atorvastatin 10 mg tablet 10 mg PO HS 05/08/18 12/02/20 cholecalciferol (vitamin D3) 10 400 unit PO BID 05/08/18 12/02/20 mcg (400 unit) tablet coenzyme Q10 100 mg capsule 100 mg PO QAM 05/08/18 12/02/20 omega 1-qax-pti-fish oil 1,000 mg 4 cap PO QPM cap 12/25/18 12/02/20 (120 mg-180 mg) capsule (Fish Oil) Previous Rx's Medication Instructions Recorded conjugated estrogens 0.625 mg/gram 0.625 mg VAGINAL 2XWK #30 gm 01/14/20 vaginal cream (Premarin) trimethoprim 100 mg tablet 100 mg PO DAILY PRN #30 tab 01/14/20 Results & Data (ED) Vital Signs Vital Signs - 24 hr 12/02/20 13:24 12/02/20 14:38 12/02/20 14:42 Temperature 36.4 C L Temperature Source Skin Pulse Rate 80 63 Pulse Rate from SpO2 Sensor 63 Pulse Rhythm Regular Pulse Strength Normal Respiratory Rate 20 17 Respiratory Effort / Characteristics Non-Labored Spontaneous Respiratory Depth Normal Respiratory Pattern Regular Blood Pressure 154/84 H 136/100 Blood Pressure Mean 107 112 Pulse Oximetry 98 98 98 Oxygen Delivery Method Room Air Room Air Sepsis Recent Fever Within 48 Hours No Sepsis New/Unexplained Change in Mental Status N/A Sepsis Action Taken by Nursing No Action Required 12/02/20 15:00 12/02/20 15:30 12/02/20 16:00 Temperature Temperature Source Pulse Rate 66 60 65 Pulse Rate from SpO2 Sensor 65 61 65 Pulse Rhythm Pulse Strength Respiratory Rate 21 22 22 Respiratory Effort / Characteristics Respiratory Depth Respiratory Pattern Blood Pressure 131/75 132/74 135/83 Blood Pressure Mean 93 93 100 Pulse Oximetry 98 99 98 Oxygen Delivery Method Sepsis Recent Fever Within 48 Hours Sepsis New/Unexplained Change in Mental Status Sepsis Action Taken by Nursing 12/02/20 16:30 Temperature Temperature Source Pulse Rate 64 Pulse Rate from SpO2 Sensor 64 Pulse Rhythm Pulse Strength Respiratory Rate 22 Respiratory Effort / Characteristics Respiratory Depth Respiratory Pattern Blood Pressure 143/75 H Blood Pressure Mean 97 Pulse Oximetry 98 Oxygen Delivery Method Sepsis Recent Fever Within 48 Hours Sepsis New/Unexplained Change in Mental Status Sepsis Action Taken by Nursing Laboratory Data Result diagrams: 12/02/20 13:35 12/02/20 13:35 Lab Results 12/02/20 12/02/20 12/02/20 Range/Units 13:35 13:35 13:35 WBC 6.26 (4.8-10.8) K/uL RBC 4.86 (4.2-5.4) M/uL Hgb 15.0 (12.0-16.0) g/dL Hct 44.5 (37-47) % MCV 91.6 (80-100) fL MCH 30.9 (25-34) pg MCHC 33.7 (32-36) g/dL RDW Std Deviation 43.3 (36.4-46.3) fL RDW Coeff of Hoda 12.9 (11.5-14.5) % Plt Count 252 (130-400) K/uL MPV 9.5 (7.4-10.4) fL Immature Gran % (Auto) 0.2 % Neut % (Auto) 70.1 % Lymph % (Auto) 22.2 % [place] % (Auto) 6.2 % Eos % (Auto) 1.0 % Baso % (Auto) 0.3 % Neut # (Auto) 4.39 (1.4-6.5) K/uL Lymph # (Auto) 1.39 (1.2-3.4) K/uL [place] # (Auto) 0.39 (0.11-0.59) K/uL Eos # (Auto) 0.06 (0-0.5) K/uL Baso # (Auto) 0.02 (0-0.2) K/uL Immature Gran # (Auto) 0.01 (0.00-0.02) K/uL PT 10.2 (9.0-12.0) Seconds INR 1.0 (0.9-1.1) APTT 25.5 (21.0-31.0) Seconds PTT Ratio 1.0 D-Dimer (0-500) ug/L FEU Sodium 136 (136-145) mmol/L Potassium 3.5 (3.5-5.1) mmol/L Chloride 103 (98-107) mmol/L Carbon Dioxide 28 (21-32) mmol/L Anion Gap 5.0 (3-11) BUN 18 (7-18) mg/dl Creatinine 1.03 (0.6-1.2) mg/dl Est Cr Clr Drug Dosing 36.8 ml/min Est GFR ( Amer) 62.5 ml/min Est GFR (Non-Af Amer) 53.9 ml/min BUN/Creatinine Ratio 17.2 (10-20) Glucose 137 H (70-99) mg/dl Calcium 8.7 (8.5-10.1) mg/dl Total Bilirubin 0.5 (0.2-1) mg/dl AST 21 (15-37) U/L ALT 26 (12-78) U/L Alkaline Phosphatase 53 (45-117) U/L Troponin I < 0.015 (0-0.045) ng/ml Total Protein 7.8 (6.4-8.2) gm/dl Albumin 4.0 (3.4-5.0) gm/dl Globulin 3.8 (2.5-4.0) gm/dl Albumin/Globulin Ratio 1.1 (0.9-2) COVID-19 Eval Order SARS-CoV-2 (PCR) (Negative) 12/02/20 12/02/20 12/02/20 Range/Units 13:35 15:47 15:47 WBC (4.8-10.8) K/uL RBC (4.2-5.4) M/uL Hgb (12.0-16.0) g/dL Hct (37-47) % MCV (80-100) fL MCH (25-34) pg MCHC (32-36) g/dL RDW Std Deviation (36.4-46.3) fL RDW Coeff of Hoda (11.5-14.5) % Plt Count (130-400) K/uL MPV (7.4-10.4) fL Immature Gran % (Auto) % Neut % (Auto) % Lymph % (Auto) % [place] % (Auto) % Eos % (Auto) % Baso % (Auto) % Neut # (Auto) (1.4-6.5) K/uL Lymph # (Auto) (1.2-3.4) K/uL [place] # (Auto) (0.11-0.59) K/uL Eos # (Auto) (0-0.5) K/uL Baso # (Auto) (0-0.2) K/uL Immature Gran # (Auto) (0.00-0.02) K/uL PT (9.0-12.0) Seconds INR (0.9-1.1) APTT (21.0-31.0) Seconds PTT Ratio D-Dimer < 190 (0-500) ug/L FEU Sodium (136-145) mmol/L Potassium (3.5-5.1) mmol/L Chloride (98-107) mmol/L Carbon Dioxide (21-32) mmol/L Anion Gap (3-11) BUN (7-18) mg/dl Creatinine (0.6-1.2) mg/dl Est Cr Clr Drug Dosing ml/min Est GFR ( Amer) ml/min Est GFR (Non-Af Amer) ml/min BUN/Creatinine Ratio (10-20) Glucose (70-99) mg/dl Calcium (8.5-10.1) mg/dl Total Bilirubin (0.2-1) mg/dl AST (15-37) U/L ALT (12-78) U/L Alkaline Phosphatase (45-117) U/L Troponin I (0-0.045) ng/ml Total Protein (6.4-8.2) gm/dl Albumin (3.4-5.0) gm/dl Globulin (2.5-4.0) gm/dl Albumin/Globulin Ratio (0.9-2) COVID-19 Eval Order Covid19 at [facility] SARS-CoV-2 (PCR) NEGATIVE (Negative) Administered Medications Discontinued Medications Aspirin (Aspirin Chew 324 Mg) 324 mg PO NOW STA Stop: 12/02/20 15:39 Last Admin: 12/02/20 15:51 Dose: 324 mg Documented by: [id number] Imaging Data Radiologist's Impression: Chest X-Ray 12/02/20 13:28 XR chest 1V portable CLINICAL HISTORY: Chest pain. COMPARISON STUDY: Chest radiograph March 03, 2020. FINDINGS: Lung volumes are normal. Lungs are clear. There is no pneumothorax or pleural effusion. Cardiac size is normal. Mediastinal contours are normal. There is no evidence for pulmonary edema. Nipple shadows project over each lower lung. There are cholecystectomy clips. IMPRESSION: No acute cardiopulmonary findings. ACT 112: Negative or not required by law. Electronically signed by: Mikhail Perkins M.D. 12/02/2020 2:39 PM Discharge Plan Visit Data Chief Complaint: Cardiac Assessment Stated Complaint: CHEST PAINS ED Provider: Vincent Mckenna Discharge Problem: Chest pain Patient Disposition: Admitted As Inpatient Discharge Instructions Interventions: ED Discharge Assessment Last Done: 12/02/20 21:31
[2020-12-02] MEDS ORDERED: ASPIRIN CHEW 324 MG PO STA (15:38)
--- NOTE | 2020-12-02 16:34 | History & Physical Report ---
Date of Service December 02, 2020 Assessment & Plan (1) Chest pain: Plan: chest pressure and dyspnea on exertion concerning for possible unstable angina Place patient in monitored observation Continue to trend cardiac enzymes We will schedule a stress echo for the morning Check TSH, hemoglobin A1c, and fasting lipid panel Start low-dose aspirin Continue atorvastatin 10 mg as ordered (2) Hypertension: Plan: Elevated blood pressure, continue to monitor If this does remain elevated, will need to consider starting antihypertensives prior to discharge History of Present Illness Chief Complaint: Chest pain Primary Care Provider: Usman Davalos This is a 75-year-old female with past medical history of hypercholesterolemia that presents today complaining chest pain. Patient is pleasant a good historian. Patient tells me that last night she had a very brief period of sharp chest pain. This was substernal with radiation to the back. It lasted only 1-2 seconds and then resolved completely. It was very brief and resolved completely. However, later in the evening and into the next day she was having some vague chest pressure that was substernal, again without radiation. She felt it became worse after she ambulated to the mailbox. It may been associated with some mild dyspnea on exertion. As the symptoms persisted, patient came to the ER for further work-up. In the emergency room, she was found to be mildly hypertensive. 2 sets of troponins drawn in the ER were nondetectable but the patient did have some nonspecific ST abnormalities on her anterior leads of her EKG. For this reason, patient is now being placed in observation for further cardiac work-up. At the time my evaluation, patient was in no cardiopulmonary distress and denied any symptoms at all at this time. She specifically denied the chest pressure or any shortness of breath. Allergies Allergy/AdvReac Type Severity Reaction Status Date / Time nitrofurantoin Allergy Mild hives Verified 01/14/20 13:06 propoxyphene Allergy Mild hives Verified 03/03/20 19:00 Home Medications Medication Instructions Recorded Confirmed Type atorvastatin 10 mg tablet 10 mg PO HS 05/08/18 12/02/20 History cholecalciferol (vitamin D3) 10 400 unit PO BID 05/08/18 12/02/20 History mcg (400 unit) tablet coenzyme Q10 100 mg capsule 100 mg PO QAM 05/08/18 12/02/20 History omega 8-ess-fzl-fish oil 1,000 mg 4 cap PO QPM cap 12/25/18 12/02/20 History (120 mg-180 mg) capsule (Fish Oil) conjugated estrogens 0.625 mg/gram 0.625 mg VAGINAL 2XWK #30 gm 01/14/20 12/02/20 Rx vaginal cream (Premarin) trimethoprim 100 mg tablet 100 mg PO DAILY PRN #30 tab 01/14/20 12/02/20 Rx Past Med/Surg History Medical History Atrophic vulvovaginitis Degenerative disc disease Endometriosis Hyperlipidemia Osteoarthritis Prediabetes Surgical History History of cholecystectomy History of colonoscopy History of dilatation and curettage History of tooth extraction Hx of left breast biopsy benign Hx of tubal ligation Family History Sister Family history of diabetes mellitus Aunt Family history of diabetes mellitus Uncle Family history of diabetes mellitus Other No family history of adverse response to anesthesia Denies family history of Breast cancer Colorectal cancer Social History Smoking Status: Never smoker Second Hand Exposure: Yes (father smoked); Hx Alcohol Use: Yes Alcohol type: wine Hx Substance Use: No Preferred Language: [place] African Communication Ability: Effective Pillar Man Required: No Beliefs That Will Affect Care: None Current Living Situation: Spouse Feels Safe at Home: Yes Assistive Devices: Glasses Review of Systems Constitutional: no fever, no chills, no weakness, no weight loss and no weight gain Eyes: as per Subjective / HPI Respiratory: no cough, no chest congestion, no dyspnea and no dyspnea on exertion Cardiovascular: + chest pain and + dyspnea on exertion; no radiating jaw, neck or arm pain, no orthopnea, no palpitations, no lightheadedness and no edema Gastrointestinal: no abdominal pain, no nausea, no vomiting, no constipation and no diarrhea/loose stools Genitourinary: no dysuria, no difficulty urinating, no urinary frequency, no urinary hesitancy, no urinary urgency and no flank pain Musculoskeletal: no back pain, no neck pain, no joint pain, no stiffness and no myalgia Integumentary: no rash Neurologic: no gait abnormality, no unsteadiness, no falls and no generalized weakness Physical Exam Constitutional: cooperative; no acute distress Neck: trachea midline, no thyromegaly Respiratory: normal respiratory effort Auscultation: lungs clear to auscultation bilaterally; no crackles, no rales, no rhonchi and no wheezes Cardiovascular: Rate/Rhythm: regular rate and regular rhythm Heart Sounds: normal S1 and normal S2 Gastrointestinal (Abdomen): Inspection/Auscultation: abdomen normal to inspection Percussion/Palpation: abdomen soft; abdomen nontender, no guarding, abdomen not rigid and no hepatosplenomegaly Skin: no rashes, warm and dry Results & Data Results & Data ([facility]) Vital Signs (Past 12 Hours) Vital Signs Temp Pulse Resp BP Pulse Ox 12/02/20 16:00 65 22 135/83 98 12/02/20 15:30 60 22 132/74 99 12/02/20 15:00 66 21 131/75 98 12/02/20 14:42 98 12/02/20 14:38 63 17 136/100 98 12/02/20 13:24 36.4 C L 80 20 154/84 H 98 Laboratory Results Laboratory Results WBC 6.26 K/uL (4.8-10.8) 12/02/20 13:35 RBC 4.86 M/uL (4.2-5.4) 12/02/20 13:35 Hgb 15.0 g/dL (12.0-16.0) 12/02/20 13:35 Hct 44.5 % (37-47) 12/02/20 13:35 MCV 91.6 fL (80-100) 12/02/20 13:35 MCH 30.9 pg (25-34) 12/02/20 13:35 MCHC 33.7 g/dL (32-36) 12/02/20 13:35 RDW Std Deviation 43.3 fL (36.4-46.3) 12/02/20 13:35 RDW Coeff of Hoda 12.9 % (11.5-14.5) 12/02/20 13:35 Plt Count 252 K/uL (130-400) 12/02/20 13:35 MPV 9.5 fL (7.4-10.4) 12/02/20 13:35 Immature Gran % (Auto) 0.2 % 12/02/20 13:35 Neut % (Auto) 70.1 % 12/02/20 13:35 Lymph % (Auto) 22.2 % 12/02/20 13:35 [place] % (Auto) 6.2 % 12/02/20 13:35 Eos % (Auto) 1.0 % 12/02/20 13:35 Baso % (Auto) 0.3 % 12/02/20 13:35 Neut # (Auto) 4.39 K/uL (1.4-6.5) 12/02/20 13:35 Lymph # (Auto) 1.39 K/uL (1.2-3.4) 12/02/20 13:35 [place] # (Auto) 0.39 K/uL (0.11-0.59) 12/02/20 13:35 Eos # (Auto) 0.06 K/uL (0-0.5) 12/02/20 13:35 Baso # (Auto) 0.02 K/uL (0-0.2) 12/02/20 13:35 Immature Gran # (Auto) 0.01 K/uL (0.00-0.02) 12/02/20 13:35 PT 10.2 Seconds (9.0-12.0) 12/02/20 13:35 INR 1.0 (0.9-1.1) 12/02/20 13:35 APTT 25.5 Seconds (21.0-31.0) 12/02/20 13:35 PTT Ratio 1.0 12/02/20 13:35 D-Dimer < 190 ug/L FEU (0-500) 12/02/20 13:35 Sodium 136 mmol/L (136-145) 12/02/20 13:35 Potassium 3.5 mmol/L (3.5-5.1) 12/02/20 13:35 Chloride 103 mmol/L (98-107) 12/02/20 13:35 Carbon Dioxide 28 mmol/L (21-32) 12/02/20 13:35 Anion Gap 5.0 (3-11) 12/02/20 13:35 BUN 18 mg/dl (7-18) 12/02/20 13:35 Creatinine 1.03 mg/dl (0.6-1.2) 12/02/20 13:35 Est Cr Clr Drug Dosing 36.8 ml/min 12/02/20 13:35 Est GFR ( Amer) 62.5 ml/min 12/02/20 13:35 Est GFR (Non-Af Amer) 53.9 ml/min 12/02/20 13:35 BUN/Creatinine Ratio 17.2 (10-20) 12/02/20 13:35 Glucose 137 mg/dl (70-99) H 12/02/20 13:35 Calcium 8.7 mg/dl (8.5-10.1) 12/02/20 13:35 Total Bilirubin 0.5 mg/dl (0.2-1) 12/02/20 13:35 AST 21 U/L (15-37) 12/02/20 13:35 ALT 26 U/L (12-78) 12/02/20 13:35 Alkaline Phosphatase 53 U/L (45-117) 12/02/20 13:35 Troponin I < 0.015 ng/ml (0-0.045) 12/02/20 13:35 Total Protein 7.8 gm/dl (6.4-8.2) 12/02/20 13:35 Albumin 4.0 gm/dl (3.4-5.0) 12/02/20 13:35 Globulin 3.8 gm/dl (2.5-4.0) 12/02/20 13:35 Albumin/Globulin Ratio 1.1 (0.9-2) 12/02/20 13:35 COVID-19 Eval Order Covid19 at [facility] 12/02/20 15:47 Impressions Chest X-Ray 12/02/20 13:28 XR chest 1V portable CLINICAL HISTORY: Chest pain. COMPARISON STUDY: Chest radiograph March 03, 2020. FINDINGS: Lung volumes are normal. Lungs are clear. There is no pneumothorax or pleural effusion. Cardiac size is normal. Mediastinal contours are normal. There is no evidence for pulmonary edema. Nipple shadows project over each lower lung. There are cholecystectomy clips. IMPRESSION: No acute cardiopulmonary findings. ACT 112: Negative or not required by law. Electronically signed by: Mikhail Perkins M.D. 12/02/2020 2:39 PM PG Care Time/CCT Total # of Minutes Spent Total Time Spent with Patient: Total time spent is greater than 50% in coordination of care (as documented) at patient's floor/unit and/or counseling patient: Coding Level of Care Code INT OBSERVATION CARE 70M LVL 3 Diagnoses Chest pain R07.9 Hypertension I10
[2020-12-02] MEDS ORDERED: ACETAMINOPHEN 325 MG TAB PO PRN (22:32)
[2020-12-02] MEDS ORDERED: ZOLPIDEM TARTRATE 5 MG TAB PO PRN (22:32)
[2020-12-02] MEDS ORDERED: ONDANSETRON INJ 2 MG/ML 2 ML VIAL IV PRN (22:32)
[2020-12-02] MEDS ORDERED: ATORVASTATIN 10 MG TAB PO SCH (23:00)
[2020-12-02] MEDS: CHOLECALCIFEROL 400 UNITS 10 MCG TAB PO SCH (23:45)
[2020-12-03 03:30] VITALS: O2SAT 97
--- NOTE | 2020-12-03 06:02 | Electrocardiogram Report ---
Test Reason : Blood Pressure : / mmHG Vent. Rate : 072 BPM Atrial Rate : 072 BPM P-R Int : 128 ms QRS Dur : 086 ms QT Int : 398 ms P-R-T Axes : 079 071 022 degrees QTc Int : 435 ms Normal sinus rhythm Possible Left atrial enlargement Nonspecific ST and T wave abnormality Abnormal ECG When compared with ECG of 03-MAR-2020 19:06, T wave inversion now evident in Inferior leads Nonspecific T wave abnormality now evident in Anterior leads Confirmed by Gregorio Houser ([id number]) on 12/03/2020 6:01:55 AM Referred By: REFERRED SELF Confirmed By:Gregorio Houser
[2020-12-03 07:20] LABS: Basophils # (auto) 0.04 K/uL (0-0.2); Basophils % (auto) 0.9 %; Eosinophils # (auto) 0.09 K/uL (0-0.5); Hematocrit (blood only) 42.4 % (37-47); Hemoglobin 14.1 g/dL (12.0-16.0); Lymphocytes # (auto) 1.49 K/uL (1.2-3.4); Lymphocytes % (auto) 33.2 %; Mean Corpuscular Hgb Conc 33.3 g/dL (32-36); Mean Corpuscular Volume 93.2 fL (80-100); Mean Platelet Volume 9.5 fL (7.4-10.4); Monocytes # (auto) 0.52 K/uL (0.11-0.59); Monocytes % (auto) 11.6 %; Neutrophils # (auto) 2.35 K/uL (1.4-6.5); Neutrophils % (auto) 52.3 %; Platelet Count 239 K/uL (130-400); RDW Standard Deviation 44.4 fL (36.4-46.3); Red Blood Count 4.55 M/uL (4.2-5.4); White Blood Count 4.49 K/uL (4.8-10.8)
[2020-12-03 07:46] LABS: BUN Creatinine Ratio 19.4 (10-20); Blood Urea Nitrogen 17 mg/dl (7-18); Carbon Dioxide 28 mmol/L (21-32); Chloride 106 mmol/L (98-107); Cholesterol 161 mg/dl (0-200); Creatinine Clr Calc Pharmacy 43.4 ml/min; Est GFR (African American) 77.7 ml/min; Glucose 83 mg/dl (70-99); Magnesium 2.6 mg/dl (1.8-2.4); Sodium 138 mmol/L (136-145); Triglycerides 70 mg/dl (0-150); VLDL Cholesterol 14 mg/dl
[2020-12-03 07:51] LABS: Chol HDL Ratio 2; HDL Cholesterol 84 mg/dl; LDL Cholesterol Calculated 63 mg/dl; Troponin I < 0.015 ng/ml (0-0.045)
[2020-12-03 07:55] LABS: Estimated Average Glucose 114 mg/dl; Hemoglobin A1C 5.6 % (4.5-5.6)
[2020-12-03] MEDS: CHOLECALCIFEROL 400 UNITS 10 MCG TAB PO SCH (08:15)
[2020-12-03] MEDS ORDERED: NON-FORMULARY MEDICATION (Coenzyme Q10 100 mg Capsule) PO SCH (09:00)
[2020-12-03] MEDS ORDERED: ASPIRIN 81 MG ECTAB PO SCH (09:00)
[2020-12-03 11:46] VITALS: PULSE 61; TEMP 97.7
--- NOTE | 2020-12-03 13:38 | XCELERA ---
[id number]
--- NOTE | 2020-12-03 14:41 | Discharge Summary ---
Date of Service December 03, 2020 Admission HPI Per Admitting Provider This is a 75-year-old female with past medical history of hypercholesterolemia that presents today complaining chest pain. Patient is pleasant a good historian. Patient tells me that last night she had a very brief period of sharp chest pain. This was substernal with radiation to the back. It lasted only 1-2 seconds and then resolved completely. It was very brief and resolved completely. However, later in the evening and into the next day she was having some vague chest pressure that was substernal, again without radiation. She felt it became worse after she ambulated to the mailbox. It may been associated with some mild dyspnea on exertion. As the symptoms persisted, patient came to the ER for further work-up. In the emergency room, she was found to be mildly hypertensive. 2 sets of troponins drawn in the ER were nondetectable but the patient did have some nonspecific ST abnormalities on her anterior leads of her EKG. For this reason, patient is now being placed in observation for further cardiac work-up. At the time my evaluation, patient was in no cardiopulmonary distress and denied any symptoms at all at this time. She specifically denied the chest pressure or any shortness of breath. Principal Diagnosis Atypical chest pain Discharge Exam Constitutional well developed, well nourished, healthy appearing, well groomed and comfortable; no acute distress Neck trachea midline, no thyromegaly Respiratory normal respiratory effort, lungs clear to auscultation Cardiovascular RRR, no murmur, no edema Gastrointestinal (Abdomen) normal bowel sounds, soft, nontender, no hepatosplenomegaly Musculoskeletal no cyanosis or clubbing, extremities motor strength 5/5 Skin no rashes, warm and dry Neurologic normal touch/pain/proprioception, CN's II-XI intact bilaterally, moves all extremities and awake; no focal motor deficits Psychiatric A+Ox3, euthymic affect Discharge Data Allergies Allergy/AdvReac Type Severity Reaction Status Date / Time nitrofurantoin Allergy Mild hives Verified 01/14/20 13:06 propoxyphene Allergy Mild hives Verified 03/03/20 19:00 Consultations 12/02/20 15:52 ED Decision to Admit Stat Hospital Course (1) Chest pain: pain occurred at rest, sharp, only lasted a few seconds, straight through to the back had similar symptoms when walking down driveway, very short lived she has been able to ride her stationary bike 6 times this week, no chest pain or dyspnea that makes her stop exercise no ischemic changes on EKG, troponin negative exercise stress test, she reached goal but lasted 3 minutes echocardiogram was non-diagnostic, due to her thin frame could not visualize the entire heart, specifically apex anterior and septal regions were normal, no wall motion changes discharge to home, follow up with PCP if she continues to have intermittent pains could try PPI or Tums to see if symptoms are related to GERD, esophageal spasm? no dysphagia symptoms (2) Hypertension: follow up with PCP Total Time Total Time Spent Total Time Spent (In Minutes): 32 Total Time Includes: Examination of the Patient, Discharge Planning, Medication Reconciliation and Communication With Other Providers (discussed with Dr. Houser) Discharge Plan Discharge Items Patient Disposition: Home - Self-Care Reason For Visit: CHEST PAIN Discharge Diagnosis: Atypical chest pain Condition on Discharge: Good Goals: follow up with PCP if symptoms return Activity: Resume your previous activity Driving/Machine Use: No limitations Weightbearing: Full weightbearing Non-emergency contact: Primary Care Provider Call non-emergency contact if: you have any medication questions and your symptoms worsen Follow-up/Referrals: Usman Davalos [Primary Care Provider] - (one week) Diet: Heart Healthy Addtl Attending Provider Instructions: Atypical chest pain troponin negative x 3 sets, no changes on EKG on admission, no evidence of acute coronary syndrome stress EKG did not show any changes with elevated heart rate and stress echocardiogram was technically non-diagnostic due to your thin frame, could not visualize the apex of the heart very well the anterior and septal portions of the heart look great, no issues at all as we discussed, typical angina is chest pain/pressure that happens on exertion and gets better with rest, not sharp pain that lasts for a few seconds other possible causes would be reflux, esophageal spasm, musculoskeletal pain recommend trying Tums or omeprazole if you get the pain again, if it improves then it could be reflux recommend following up with Dr. Davalos, especially if the symptoms keep happening Pending Studies at Discharge: No Stand-Alone Forms: [employer], Smoking Cessation Medications and DC Order Prescriptions: Continued Premarin 0.625 mg/gram cream 0.625 mg Vaginal 2XWK Qty: 30 RF: 3 trimethoprim 100 mg tablet 100 mg PO DAILY PRN (Reason: uti) Qty: 30 RF: 0 atorvastatin 10 mg Tablet 10 mg PO HS RF: 0 cholecalciferol (vitamin D3) 400 unit Tablet 400 unit PO BID RF: 0 coenzyme Q10 100 mg Capsule 100 mg PO QAM RF: 0 omega 1-jzc-reu-fish oil [Fish Oil] 1,000 mg (120 mg-180 mg) capsule 4 cap PO QPM RF: 0 Discharge Orders: Discharge Order (Routine); Ordered 12/03/20 Ordered By: Douglas Wilburn Admission Data Admit Date/Time: 12/02/20 16:39 Attending Provider: Douglas Wilburn Admit Provider: Joel Phipps Primary Care Provider: Usman Davalos Other Providers: Joel Phipps Other Interventions: Discharge Summary Assessment (RN) Last Done: 12/03/20 15:06 Coding Level of Care Code 03987 OBS Care - Discharge Diagnoses Chest pain R07.9 Hypertension I10
[2020-12-03 15:07] VITALS: BP 129/69
--- NOTE | 2020-12-04 06:10 | Electrocardiogram Report ---
Test Reason : Blood Pressure : / mmHG Vent. Rate : 059 BPM Atrial Rate : 059 BPM P-R Int : 128 ms QRS Dur : 086 ms QT Int : 440 ms P-R-T Axes : 078 065 046 degrees QTc Int : 435 ms Sinus bradycardia Otherwise normal ECG When compared with ECG of 02-DEC-2020 13:31, T wave inversion no longer evident in Inferior leads Confirmed by Gregorio Houser ([id number]) on 12/04/2020 6:09:44 AM Referred By: REFERRED SELF Confirmed By:Gregorio Houser
== END 2020-12-03 15:18 | disposition home or self-care (01) ==
LOC: 2S 13:18 → ED 13:18 → SUATTDRO 16:39 → 2S 21:31
DX: Z79.899 Other long term (current) drug therapy; Z88.8 Allergy status to other drugs, medicaments and biological substances; I10 Essential (primary) hypertension; Z20.822 Contact with and (suspected) exposure to COVID-19; R07.89 Other chest pain; M19.90 Unspecified osteoarthritis, unspecified site; E78.5 Hyperlipidemia, unspecified